=== PATIENT | male | born 1945 | race American Indian/Alaskan Native ===

== ENCOUNTER 2018-09-02 12:55 | Day surgery (SDC) | payer MEDICARE ==
[2018-09-01 15:34] VITALS: BMI 25.8
[2018-09-02 13:26] LABS: BASO # 0.03 K/mm3 (0.0-2.0); BASO % 0.3 % (0.0-3.0); EOS # 0.2 (0.0-0.7); EOS % 1.4 % (1.5-5.0); HEMOGLOBIN 10.4 g/dL (14.0-18.0); LYMPH # 3.2 (1.2-3.4); LYMPH % 30.3 % (22.0-35.0); MEAN CELL VOLUME 78.3 fl (80.0-105.0); MEAN CORPUSCULAR HEMOGLOBIN 25.4 pg (25.0-35.0); MEAN CORPUSCULAR HGB CONC 32.4 g/dl (31.0-37.0); MEAN PLATELET VOLUME 9.2 fl (7.0-11.0); MONO # 0.5 (0.1-0.6); MONO % 4.7 % (1.0-6.0); RBC 4.1 10^6/uL (3.5-6.1); RED CELL DISTRIBUTION WIDTH 16.9 % (11.5-14.5); WHITE BLOOD COUNT 10.7 10^3/uL (4.5-11.0)
[2018-09-02 13:35] LABS: INR 1.04; PARTIAL THROMBOPLASTIN TIME 38.7 Seconds (26.9-38.3); PROTHROMBIN TIME 11.8 SECONDS (9.4-12.5)
[2018-09-02 13:36] LABS: CALCIUM 8.8 mg/dL (8.4-10.5)
[2018-09-02] MEDS ORDERED: Barium Sulfate Susp 2.1% w/v, 2.0% w/w 450 mL Bottle PO ONE (13:36)
[2018-09-02] MEDS ORDERED: Midazolam 2 MG/2 ML VIAL ONE (15:57)
[2018-09-02] MEDS ORDERED: Midazolam 2 MG/2 ML VIAL IVP ONE (16:25)
[2018-09-02] MEDS ORDERED: Sodium Chloride 0.45% 1,000 ML IV SCH (16:45)
[2018-09-02 16:56] LABS: BODY FLUID TYPE PERITONEAL
[2018-09-02 17:21] LABS: BF GROSS APPEARANCE SL CLOUDY (CLEAR); BODY FLUID TOTAL COUNT 100 (0-0)
--- NOTE | 2018-09-02 17:35 | CT ---
PROCEDURE: CT-guided left inguinal seroma drainage. HISTORY: Recent left inguinal lymph node resection. Enlarging seroma left groin. Needs drainage prior to radiation therapy. PHYSICIAN(S): Kulwant Hall MD. TECHNIQUE: The relative risks and indications for the procedure were explained to the patient and informed consent obtained. The patient was placed in a supine position on the CT scanner and preliminary images through the pelvis performed. This revealed a 5 x 7 cm fluid collection in the left groin.. A left anterior and lateral approach was selected and the area prepped/draped in the usual sterile fashion. Conscious sedation and monitoring were provided throughout the procedure by nurse. An 18-gauge needle was advanced into the collection and 5 cc of clear straw-colored fluid aspirated. A cell count/differential and microbiology specimen were sent. A 0.035 J-wire was coiled within the fluid collection. Sequential dilatation was performed with subsequent placement of a 12 Georgian pigtail drain. Approximately 65 cc of clear straw-colored fluid was aspirated. The cavity was lavaged with normal saline. The drain was sutured to the skin and placed to gravity drainage. Completion images were performed. The patient tolerated the procedure well. IMPRESSION: 1. CT-guided left inguinal seroma drainage as described above.
[2018-09-02 17:41] VITALS: RESP 20; TEMP 97.6; O2SAT 99
[2018-09-02 18:18] VITALS: BP 125/88; PULSE 88
--- NOTE | 2018-09-03 13:23 | CT ---
Date of service: 09/02/2018 PROCEDURE: CT Abdomen and Pelvis without intravenous contrast HISTORY: PRE PROCEDURE CT PELVIS W/ ORAL CONTRAST COMPARISON: None. TECHNIQUE: Without contrast.. Contrast dose: Radiation dose: Total exam DLP = 381.99 mGy-cm. This CT exam was performed using one or more of the following dose reduction techniques: Automated exposure control, adjustment of the mA and/or kV according to patient size, and/or use of iterative reconstruction technique. FINDINGS: LOWER THORAX: Unremarkable. LIVER: Unremarkable. No gross lesion or ductal dilatation. GALLBLADDER AND BILE DUCTS: Unremarkable. PANCREAS: Unremarkable. No gross lesion or ductal dilatation. SPLEEN: Unremarkable. ADRENALS: Unremarkable. No mass. KIDNEYS AND URETERS: There is perinephric stranding around both kidneys right greater than left. There is no evidence of hydronephrosis. VASCULATURE: Unremarkable. No aortic aneurysm. Aortic calcification BOWEL: Unremarkable. No obstruction. No gross mural thickening. APPENDIX: Unremarkable. Normal appendix. PERITONEUM: Unremarkable. No free fluid. No free air. LYMPH NODES: Unremarkable. No enlarged lymph nodes. BLADDER: Unremarkable. REPRODUCTIVE: Unremarkable. BONES: No acute fracture. OTHER FINDINGS: There is a fluid collection in the left inguinal region measuring 65 mm in height by 83 mm wide by 50 mm AP. This extends along the upper thigh. This does not extend into the scrotum. IMPRESSION: There is perinephric stranding around both kidneys right greater than left. There is no evidence of hydronephrosis. There is a fluid collection in the left inguinal region measuring 65 mm in height by 83 mm wide by 50 mm AP. This extends along the upper thigh. This does not extend into the scrotum.
== END 2018-09-02 18:30 | disposition home or self-care (01) ==
LOC: SDS 12:55
PROVIDERS: ATTEND Radiology Vascular & Interventional Radiology
DX: L76.34 Postprocedural seroma of skin and subcutaneous tissue following other procedure (principal); Y83.8 Other surgical procedures as the cause of abnormal reaction of the patient, or of later complication, without mention of misadventure at the time of the procedure; I10 Essential (primary) hypertension; I25.10 Atherosclerotic heart disease of native coronary artery without angina pectoris